=== PATIENT | male | born 1950 | race Two or more races ===

== ENCOUNTER 2016-11-20 09:54 | Emergency (ER) | payer OTHER ==
[~2016-11-20] VITALS: Ht 180.3 cm; Wt 88.5 kg
[~2016-11-20 09:54] MED LIST: ALPR1TAB2 PO; BUPR1TAB11 PO; DIVA125T12 PO; METH500T6 PO; OMEP20TA44 PO; SIMV10TA84 PO; TRAZ50TA2 PO
[2016-11-20] MEDS ORDERED: BACITRACIN TOP OINT 1 UD PKG TOP ONE (11:15)
[2016-11-20] MEDS ORDERED: KETOROLAC TROMETH 60MG/2ML VIAL IM ONE (11:15)
[2016-11-20] MEDS ORDERED: LIDOCAINE 1% HCL (LOCAL ANESTH.) INJ 20ML MDV IJ ONE (11:15)
[2016-11-20 11:37] VITALS: BP 112/89
[2016-11-20] MEDS ORDERED: cefTRIAXone SOD 1,000 MG VL IM ONE (12:30)
== END 2016-11-20 12:56 | disposition home or self-care (01) ==
LOC: ER 09:57
DX: S62.607A Fracture of unspecified phalanx of left little finger, initial encounter for closed fracture (principal); S61.217A Laceration without foreign body of left little finger without damage to nail, initial encounter; F17.290 Nicotine dependence, other tobacco product, uncomplicated; Z90.49 Acquired absence of other specified parts of digestive tract; W54.0XXA Bitten by dog, initial encounter; Y93.89 Activity, other specified; Y99.8 Other external cause status; Y92.89 Other specified places as the place of occurrence of the external cause
CPT/HCPCS: 12002; 29130; 73130; 96372; 99285; J0696; J1885; J2001

== ENCOUNTER 2017-12-19 13:40 | Inpatient (IN) | payer MEDICARE, OTHER ==
[~2017-12-19] VITALS: Ht 180.3 cm; Wt 91.1 kg
[2017-12-19] MEDS ORDERED: NITROGLYCERIN 0.4 MG SL TAB SL ONE (14:00)
[2017-12-19] MEDS ORDERED: ASPirin 81 mg TAB PO ONE (14:00)
[2017-12-19 14:41] LABS: Alanine Aminotransferase 20 U/L (16-61); Albumin 3.4 g/dL (3.4-5.0); Alkaline Phosphatase 67 U/L (45-117); Anion Gap 6 (5-15); Aspartate Aminotransferase 14 U/L (15-37); BUN/Creatinine Ratio 14.5; Bilirubin, Total 0.9 mg/dL (0.2-1.0); Blood Urea Nitrogen 10 mg/dL (7-18); Carbon Dioxide 25 mmol/L (21-32); Chloride 102 mmol/L (98-107); GFR African American 146 mL/min; GFR Non-African American 121 mL/min; Glucose 102 mg/dL (74-106); Potassium 4.2 mmol/L (3.5-5.1); Sodium 133 mmol/L (136-145); Total Protein 7.8 g/dL (6.4-8.2)
[2017-12-19 14:55] LABS: Basophils # (auto) 0 uL; Basophils % (auto) 0.2 % (0.0-2.0); Eosinophils # (auto) 0 uL; Eosinophils % (auto) 0.2 % (0.0-7.0); Hematocrit 42.6 % (41.0-53.0); Hemoglobin 14.5 g/dL (13.5-17.5); Lymphocytes # (auto) 0.6 uL; Lymphocytes % (auto) 5.1 % (10.0-50.0); Mean Corpuscular Hemoglobin 31.5 pg (28.0-32.0); Mean Corpuscular Volume 92.6 fL (80.0-100.0); Monocytes # (auto) 1.3 uL; Monocytes % (auto) 10.7 % (0.0-12.0); Neutrophils # (auto) 9.9 uL; Neutrophils % (auto) 83.8 % (37.0-80.0); Nucleated Red Blood Cells % 0.1 %; Platelet Count (auto) 192 10^3/uL (140-450); Red Cell Distribution Width 13.1 % (11.8-14.3); White Blood Cell 11.8 10^3/uL (4.4-10.8)
[2017-12-19] MEDS ORDERED: MORPHINE SULFATE 8mg/ml INJ SDV IV PRN ×2 (15:30)
[2017-12-19] MEDS ORDERED: ALPRAZOLAM 1 MG PO SCH (15:30)
[2017-12-19] MEDS ORDERED: ACETAMINOPHEN 500 MG TAB PO PRN (15:30)
[2017-12-19] MEDS ORDERED: NITROGLYCERIN 0.4 MG SL TAB SL PRN (15:30)
[2017-12-19] MEDS ORDERED: PROMETHAZINE HCL 25 MG/ML 1ML IV PRN (15:30)
[2017-12-19] MEDS ORDERED: SODIUM CHLORIDE 0.9% 1,000 ML IV ONE (15:30)
[2017-12-19] MEDS ORDERED: ALPR PO (16:18)
[2017-12-19] MEDS ORDERED: ALPRAZolam 0.25 MG TAB PO PRN (16:30)
[2017-12-19] MEDS: ENOXAPARIN SOD 40 MG/0.4 ML SYRINGE SC SCH (16:33)
[2017-12-19] MEDS ORDERED: ATOR20TA50 PO (17:54)
[2017-12-19] MEDS ORDERED: BUPRTAB PO (17:54)
[2017-12-19] MEDS ORDERED: FLUO20CA19 PO (17:54)
[2017-12-19] MEDS ORDERED: METH500T6 PO (17:54)
[2017-12-19] MEDS ORDERED: TRAZ100T2 PO (17:54)
[2017-12-19] MEDS ORDERED: HYDR-4683 PO (17:55)
[2017-12-19 17:58] VITALS: BP 135/81
[2017-12-19] MEDS: SODIUM CHLORIDE 0.9% 1,000 ML IV SCH ×2 (18:53→23:04)
[2017-12-19] MEDS: ATORVASTATIN 20 MG TAB PO SCH (21:36)
[2017-12-19] MEDS: traZODone HCL 50 MG TAB PO SCH (21:39)
[2017-12-19 22:00] VITALS: BP 121/77
[2017-12-20 05:00] VITALS: BP 146/97
[2017-12-20 05:15] LABS: Urine WBC None Seen /hpf (0 - 3)
[2017-12-20 05:27] LABS: Urine Bacteria NONE SEEN /hpf (None Seen); Urine Blood Negative /uL (Negative); Urine Specific Gravity 1.013 (1.001-1.035)
[2017-12-20 05:41] LABS: Alcohol, Urine < 3.0 mg/dL (0-5); Amphetamine Screen, Urine NEGATIVE (NEGATIVE); Barbiturate Scree,Urine NEGATIVE (NEGATIVE); Benzodiazephine Screen, Urine NEGATIVE (NEGATIVE); Cannabinoid Screen, Urine NEGATIVE (NEGATIVE); Cocaine Screen, Urine NEGATIVE (NEGATIVE); Opiate Scree,Urine POSITIVE (NEGATIVE); Phencyclidine Screen, Urine NEGATIVE (NEGATIVE)
[2017-12-20 06:21] LABS: Basophils # (auto) 0 uL; Basophils % (auto) 0.4 % (0.0-2.0); Eosinophils # (auto) 0 uL; Eosinophils % (auto) 0.3 % (0.0-7.0); Hematocrit 40.3 % (41.0-53.0); Hemoglobin 13.8 g/dL (13.5-17.5); Lymphocytes # (auto) 1.1 uL; Lymphocytes % (auto) 9.4 % (10.0-50.0); Mean Corpuscular Hemoglobin 31.8 pg (28.0-32.0); Mean Corpuscular Hgb Conc. 34.1 g/dL (32.0-36.0); Mean Corpuscular Volume 93.3 fL (80.0-100.0); Monocytes # (auto) 1.9 uL; Neutrophils # (auto) 8.3 uL; Neutrophils % (auto) 72.9 % (37.0-80.0); Nucleated Red Blood Cells % 0.1 %; Platelet Count (auto) 193 10^3/uL (140-450); Red Blood Cells 4.32 10^6/uL (4.5-5.90); Red Cell Distribution Width 13.2 % (11.8-14.3); White Blood Cell 11.3 10^3/uL (4.4-10.8)
[2017-12-20] MEDS: HYDROcodone-ACET 5/325MG TAB PO PRN ×3 (06:37→18:41)
[2017-12-20 06:43] LABS: Albumin 2.9 g/dL (3.4-5.0); BUN/Creatinine Ratio 14.1; Bilirubin, Total 1.1 mg/dL (0.2-1.0); Calcium 8.9 mg/dL (8.5-10.1); Total Protein 7.1 g/dL (6.4-8.2)
[2017-12-20 08:00] VITALS: BP 139/86
[2017-12-20 08:30] VITALS: BP 139/86
[2017-12-20] MEDS: buPROPion HCL 75 MG TAB PO SCH ×2 (08:53→17:56)
[2017-12-20] MEDS ORDERED: DIVALPROEX SODIUM 500 MG PO SCH (10:00)
[2017-12-20] MEDS ORDERED: BUPROPION HCL 150 MG PO SCH (10:00)
[2017-12-20] MEDS: ENOXAPARIN SOD 40 MG/0.4 ML SYRINGE SC SCH (10:47)
[2017-12-20] MEDS: PANTOPRAZOLE 40 MG TAB PO SCH (10:49)
[2017-12-20] MEDS: ASPirin 81 mg TAB PO SCH (10:49)
[2017-12-20] MEDS: METHOCARBAMOL 500 MG TAB PO SCH (10:51)
[2017-12-20] MEDS: traZODone HCL 50 MG TAB PO SCH ×2 (10:51→21:41)
[2017-12-20 12:30] VITALS: BP 158/90
[2017-12-20] MEDS: SODIUM CHLORIDE 0.9% 1,000 ML IV SCH ×2 (12:30→23:17)
[2017-12-20 17:03] VITALS: BP 142/88
[2017-12-20] MEDS: ATORVASTATIN 20 MG TAB PO SCH (21:41)
[2017-12-20] MEDS: TEMAZEPAM 15 MG CAP PO PRN (21:41)
[2017-12-20 22:00] VITALS: BP 136/87
[2017-12-21 05:00] VITALS: BP 159/96
[2017-12-21] MEDS: HYDROcodone-ACET 5/325MG TAB PO PRN ×3 (06:36→13:00)
[2017-12-21] MEDS: buPROPion HCL 75 MG TAB PO SCH ×2 (08:05→17:58)
[2017-12-21 08:15] VITALS: BP 120/94
[2017-12-21] MEDS: ASPirin 81 mg TAB PO SCH (10:09)
[2017-12-21] MEDS: traZODone HCL 50 MG TAB PO SCH ×2 (10:09→21:29)
[2017-12-21] MEDS: PANTOPRAZOLE 40 MG TAB PO SCH (10:10)
[2017-12-21] MEDS: METHOCARBAMOL 500 MG TAB PO SCH (10:10)
[2017-12-21] MEDS: ENOXAPARIN SOD 40 MG/0.4 ML SYRINGE SC SCH (10:10)
[2017-12-21 13:00] VITALS: BP 149/89
[2017-12-21 17:12] VITALS: BP 123/83
[2017-12-21] MEDS: KETOROLAC TROMETH 30 MG/ML 1ML VIAL IV SCH (17:58)
[2017-12-21] MEDS: SODIUM CHLORIDE 0.9% 1,000 ML IV SCH (18:54)
[2017-12-21] MEDS: TEMAZEPAM 15 MG CAP PO PRN (21:29)
[2017-12-21] MEDS: ATORVASTATIN 20 MG TAB PO SCH (21:29)
[2017-12-21 22:00] VITALS: BP 117/70
[2017-12-22] MEDS: KETOROLAC TROMETH 30 MG/ML 1ML VIAL IV SCH ×5 (00:07→23:54)
[2017-12-22] MEDS: SODIUM CHLORIDE 0.9% 1,000 ML IV SCH (04:16)
[2017-12-22 05:00] VITALS: BP 116/75
[2017-12-22] MEDS: buPROPion HCL 75 MG TAB PO SCH ×2 (08:28→17:53)
[2017-12-22 09:22] VITALS: BP 114/77
[2017-12-22] MEDS: HYDROcodone-ACET 5/325MG TAB PO PRN ×2 (10:30→20:25)
[2017-12-22] MEDS: ASPirin 81 mg TAB PO SCH (10:58)
[2017-12-22] MEDS: PANTOPRAZOLE 40 MG TAB PO SCH (11:07)
[2017-12-22] MEDS: traZODone HCL 50 MG TAB PO SCH ×2 (11:07→21:29)
[2017-12-22] MEDS: METHOCARBAMOL 500 MG TAB PO SCH (11:08)
[2017-12-22] MEDS: ENOXAPARIN SOD 40 MG/0.4 ML SYRINGE SC SCH (11:08)
[2017-12-22 13:00] VITALS: BP 115/74
[2017-12-22 16:30] VITALS: BP 114/80
[2017-12-22 20:00] VITALS: BP 133/89
[2017-12-22] MEDS: ATORVASTATIN 20 MG TAB PO SCH (21:29)
[2017-12-23] VITALS (8 sets, daily range): BP systolic 119–149; BP diastolic 87–102
[2017-12-23] MEDS: SODIUM CHLORIDE 0.9% 1,000 ML IV SCH ×2 (01:32→20:30)
[2017-12-23] MEDS: KETOROLAC TROMETH 30 MG/ML 1ML VIAL IV SCH ×3 (06:20→18:00)
[2017-12-23] MEDS: buPROPion HCL 75 MG TAB PO SCH ×2 (07:45→18:00)
[2017-12-23] MEDS: HYDROcodone-ACET 5/325MG TAB PO PRN ×2 (07:50→20:12)
[2017-12-23] MEDS: ASPirin 81 mg TAB PO SCH (09:19)
[2017-12-23] MEDS: traZODone HCL 50 MG TAB PO SCH ×2 (09:19→21:32)
[2017-12-23] MEDS: ENOXAPARIN SOD 40 MG/0.4 ML SYRINGE SC SCH (09:19)
[2017-12-23] MEDS: PANTOPRAZOLE 40 MG TAB PO SCH (09:19)
[2017-12-23] MEDS: METHOCARBAMOL 500 MG TAB PO SCH (09:19)
[2017-12-23] MEDS ORDERED: ADENOSINE 77 MG in GIVE UN-DILUTED 0 ML IV ONE (13:15)
[2017-12-23] MEDS: ATORVASTATIN 20 MG TAB PO SCH (21:32)
[2017-12-24] MEDS: KETOROLAC TROMETH 30 MG/ML 1ML VIAL IV SCH ×3 (00:32→11:32)
[2017-12-24 04:42] VITALS: BP 125/80
[2017-12-24] MEDS: SODIUM CHLORIDE 0.9% 1,000 ML IV SCH (05:53)
[2017-12-24] MEDS: buPROPion HCL 75 MG TAB PO SCH (08:24)
[2017-12-24 09:00] VITALS: BP 148/92
[2017-12-24] MEDS: ENOXAPARIN SOD 40 MG/0.4 ML SYRINGE SC SCH (10:00)
[2017-12-24] MEDS: METHOCARBAMOL 500 MG TAB PO SCH (10:03)
[2017-12-24] MEDS: ASPirin 81 mg TAB PO SCH (10:03)
[2017-12-24] MEDS: PANTOPRAZOLE 40 MG TAB PO SCH (10:03)
[2017-12-24] MEDS: traZODone HCL 50 MG TAB PO SCH (10:04)
[2017-12-24 12:18] VITALS: BP 106/71
[2017-12-24 13:00] VITALS: BP 135/77
== END 2017-12-24 13:05 | disposition home or self-care (01) | DRG 552 ==
LOC: EDBD 13:40 → ER 13:42 → TELE 13:43 → TELE-EAST 17:30
PROVIDERS: ADMIT Internal Medicine; ATTEND Internal Medicine
DX: M47.816 Spondylosis without myelopathy or radiculopathy, lumbar region (principal); E87.1 Hypo-osmolality and hyponatremia; R07.89 Other chest pain; F43.10 Post-traumatic stress disorder, unspecified; E78.5 Hyperlipidemia, unspecified; F41.9 Anxiety disorder, unspecified; G89.4 Chronic pain syndrome; I10 Essential (primary) hypertension; K21.9 Gastro-esophageal reflux disease without esophagitis; M06.9 Rheumatoid arthritis, unspecified; Z80.1 Family history of malignant neoplasm of trachea, bronchus and lung; Z82.49 Family history of ischemic heart disease and other diseases of the circulatory system; Z83.3 Family history of diabetes mellitus; Z86.010 Personal history of colon polyps; Z90.49 Acquired absence of other specified parts of digestive tract; Z79.899 Other long term (current) drug therapy
CPT/HCPCS: 36415; 71045; 72131; 72146; 72148; 78452; 80053; 80061; 80307; 81001; 82550; 84443; 84484; 85025; 85379; 85652; 86141; 93005; 93017; 93306; 96361; 96374; 96375; 97116; 97163; 97530; J0153; J1885; J2270

== ENCOUNTER 2017-12-27 07:07 | Inpatient (IN) | payer MEDICARE, OTHER ==
[~2017-12-27] VITALS: Ht 180.3 cm; Wt 86.3 kg
[~2017-12-27 07:07] MED LIST changes: +ALPR PO; -ALPR1TAB2 PO; +ATOR20TA50 PO; -BUPR1TAB11 PO; +BUPRTAB PO; +FLUO20CA19 PO; +HYDR-4683 PO; -SIMV10TA84 PO; +TRAZ100T2 PO; -TRAZ50TA2 PO
[2017-12-27] MEDS ORDERED: SODIUM CHLORIDE 0.9% 1,000 ML IV ONE (08:18)
[2017-12-27 08:29] LABS: Eosinophils # (auto) 0 uL; Eosinophils % (auto) 0.1 % (0.0-7.0)
[2017-12-27] MEDS ORDERED: PROMETHAZINE HCL 25 MG/ML 1ML IV PRN (08:30)
[2017-12-27] MEDS ORDERED: MORPHINE SULFATE 8mg/ml INJ SDV IV ONE (08:30)
[2017-12-27 08:33] LABS: Basophils # (auto) 0.1 uL; Basophils % (auto) 0.6 % (0.0-2.0); Hemoglobin 20.5 g/dL (13.5-17.5); Lymphocytes # (auto) 0.9 uL; Lymphocytes % (auto) 4.2 % (10.0-50.0); Mean Corpuscular Hemoglobin 31.3 pg (28.0-32.0); Mean Corpuscular Hgb Conc. 33.7 g/dL (32.0-36.0); Mean Corpuscular Volume 92.9 fL (80.0-100.0); Monocytes # (auto) 1.2 uL; Monocytes % (auto) 5.7 % (0.0-12.0); Neutrophils # (auto) 19.1 uL; Neutrophils % (auto) 89.4 % (37.0-80.0); Nucleated Red Blood Cells % 0.7 %; Platelet Count (auto) 515 10^3/uL (140-450); Red Blood Cells 6.56 10^6/uL (4.5-5.90); Red Cell Distribution Width 13.9 % (11.8-14.3); White Blood Cell 21.4 10^3/uL (4.4-10.8)
[2017-12-27] MEDS ORDERED: MORPHINE SULFATE 4 MG/ML SYR/VIAL ONE (08:36)
[2017-12-27 08:49] LABS: Hematocrit 60.9 % (41.0-53.0)
[2017-12-27] MEDS ORDERED: IOHEXOL 300 MG/ML 100ML BOTTLE IJ ONE (08:51)
[2017-12-27 08:53] LABS: INR 1.16 (0.9-1.15); Partial Thromboplastin Time 25.1 sec (23.78-33.04); Prothrombin Time 12.3 sec (9.27-12.13)
[2017-12-27 09:07] LABS: Albumin 3.2 g/dL (3.4-5.0); BUN/Creatinine Ratio 12.2; Bilirubin, Total 1.2 mg/dL (0.2-1.0); Magnesium 2.4 mg/dL (1.6-2.6); Potassium 4.4 mmol/L (3.5-5.1)
[2017-12-27 12:11] LABS: Urine Bacteria FEW /hpf (None Seen); Urine Blood Negative /uL (Negative); Urine WBC 57 /hpf (0 - 3)
[2017-12-27 12:21] LABS: Urine Specific Gravity > 1.050 (1.001-1.035)
[2017-12-27] MEDS ORDERED: TEMAZEPAM 15 MG CAP PO PRN (13:45)
[2017-12-27] MEDS ORDERED: NITROGLYCERIN 0.4 MG SL TAB SL PRN (13:45)
[2017-12-27] MEDS ORDERED: MORPHINE SULFATE 8mg/ml INJ SDV IV PRN ×2 (13:45)
[2017-12-27] MEDS ORDERED: cefTRIAXone 1GM/10ml IVPUSH 10 ML IV ONE (13:45)
[2017-12-27] MEDS ORDERED: ONDANSETRON HCL 4 MG/2 ML VIAL IV PRN (13:45)
[2017-12-27] MEDS ORDERED: DOCUSATE SOD 100 MG CAP PO PRN (13:45)
[2017-12-27] MEDS ORDERED: ACETAMINOPHEN 325 MG TAB PO PRN (13:45)
[2017-12-27] MEDS ORDERED: ALPRAZolam 0.25 MG TAB PO PRN (13:45)
[2017-12-27] MEDS ORDERED: DEXTROSE (50%) 50ML SYRG IV PRN (13:45)
[2017-12-27] MEDS: SODIUM CHLOR 0.9% PF (SALINE LOCK) 10ML VIAL/SYR IV SCH ×2 (14:11→22:48)
[2017-12-27] MEDS: HYDROcodone-ACET 5/325MG TAB PO PRN (16:26)
[2017-12-27 17:51] VITALS: BP 125/81
[2017-12-27] MEDS: Boost Glucose Control 8 Ounces PO SCH (18:00)
[2017-12-27] MEDS: ACCU-CHEK COMFORT CURVE STRIP VI SCH ×2 (19:35→22:00)
[2017-12-27] MEDS: InsuLIN REG 1unit/0.01ml Soln (100units/ml) SC SCH ×2 (19:35→22:00)
[2017-12-27] MEDS: METHOCARBAMOL 500 MG TAB PO SCH (19:38)
[2017-12-27] MEDS: buPROPion HCL 75 MG TAB PO SCH (19:38)
[2017-12-27 20:00] VITALS: BP 95/66
[2017-12-27 20:47] VITALS: BP 95/66
[2017-12-27 22:00] VITALS: BP 95/66
[2017-12-27] MEDS: FAMOTIDINE 20 MG TAB PO SCH (22:46)
[2017-12-27] MEDS: traZODone HCL 50 MG TAB PO SCH (22:46)
[2017-12-27] MEDS: ATORVASTATIN 20 MG TAB PO SCH (22:46)
[2017-12-28] MEDS: HYDROcodone-ACET 5/325MG TAB PO PRN ×2 (04:07→10:55)
[2017-12-28 04:56] VITALS: BP 90/64
[2017-12-28 05:53] LABS: Basophils # (auto) 0.1 uL; Basophils % (auto) 0.4 % (0.0-2.0); Eosinophils # (auto) 0.1 uL; Eosinophils % (auto) 0.5 % (0.0-7.0); Hematocrit 45.6 % (41.0-53.0); Hemoglobin 15.7 g/dL (13.5-17.5); Lymphocytes # (auto) 1.9 uL; Lymphocytes % (auto) 10.3 % (10.0-50.0); Mean Corpuscular Hemoglobin 31.8 pg (28.0-32.0); Mean Corpuscular Hgb Conc. 34.5 g/dL (32.0-36.0); Mean Corpuscular Volume 92.2 fL (80.0-100.0); Monocytes # (auto) 1.9 uL; Monocytes % (auto) 10.2 % (0.0-12.0); Neutrophils # (auto) 14.3 uL; Neutrophils % (auto) 78.6 % (37.0-80.0); Nucleated Red Blood Cells % 0.1 %; Platelet Count (auto) 421 10^3/uL (140-450); Red Blood Cells 4.95 10^6/uL (4.5-5.90); Red Cell Distribution Width 13.5 % (11.8-14.3); White Blood Cell 18.2 10^3/uL (4.4-10.8)
[2017-12-28 06:00] LABS: Albumin 2.5 g/dL (3.4-5.0); BUN/Creatinine Ratio 21.9; Bilirubin, Total 0.5 mg/dL (0.2-1.0); Calcium 8.6 mg/dL (8.5-10.1); Potassium 3.7 mmol/L (3.5-5.1); Total Protein 6.8 g/dL (6.4-8.2)
[2017-12-28] MEDS: SODIUM CHLOR 0.9% PF (SALINE LOCK) 10ML VIAL/SYR IV SCH ×3 (06:52→22:17)
[2017-12-28] MEDS: buPROPion HCL 75 MG TAB PO SCH ×2 (06:52→19:19)
[2017-12-28] MEDS: InsuLIN REG 1unit/0.01ml Soln (100units/ml) SC SCH ×4 (06:53→22:00)
[2017-12-28] MEDS: ACCU-CHEK COMFORT CURVE STRIP VI SCH ×4 (06:53→22:00)
[2017-12-28 09:00] VITALS: BP 110/77
[2017-12-28] MEDS: cefTRIAXone 1GM/10ml IVPUSH 10 ML IV SCH (09:14)
[2017-12-28] MEDS: METHOCARBAMOL 500 MG TAB PO SCH ×3 (09:14→19:19)
[2017-12-28] MEDS: Boost Glucose Control 8 Ounces PO SCH ×3 (09:14→18:00)
[2017-12-28] MEDS: MULTIPLE VITAMIN TAB PO SCH (10:53)
[2017-12-28] MEDS: FAMOTIDINE 20 MG TAB PO SCH (10:53)
[2017-12-28] MEDS: PANTOPRAZOLE 40 MG TAB PO SCH (10:53)
[2017-12-28] MEDS: FLUoxetine HCL 20 MG CAP PO SCH (10:53)
[2017-12-28] MEDS ORDERED: GOLYTELY 4L KIT PO ONE (11:45)
[2017-12-28 13:00] VITALS: BP 115/81
[2017-12-28] MEDS: SODIUM CHLORIDE 0.9% 1,000 ML IV SCH ×2 (16:19→23:12)
[2017-12-28] MEDS: metroNIDAZOLE 500MG/100ML 100 ML IV SCH ×3 (16:19→22:17)
[2017-12-28 17:47] VITALS: BP 96/69
[2017-12-28 22:00] VITALS: BP 109/70
[2017-12-28] MEDS: traZODone HCL 50 MG TAB PO SCH (22:18)
[2017-12-28] MEDS: ATORVASTATIN 20 MG TAB PO SCH (22:18)
[2017-12-29 05:00] VITALS: BP 93/66
[2017-12-29] MEDS ORDERED: GOLYTELY 4L KIT PO ONE (06:00)
[2017-12-29] MEDS: metroNIDAZOLE 500MG/100ML 100 ML IV SCH ×2 (06:33→14:00)
[2017-12-29] MEDS: SODIUM CHLOR 0.9% PF (SALINE LOCK) 10ML VIAL/SYR IV SCH ×2 (06:34→14:00)
[2017-12-29] MEDS: ACCU-CHEK COMFORT CURVE STRIP VI SCH ×2 (06:35→11:56)
[2017-12-29] MEDS: buPROPion HCL 75 MG TAB PO SCH (06:35)
[2017-12-29] MEDS: InsuLIN REG 1unit/0.01ml Soln (100units/ml) SC SCH ×2 (06:35→11:30)
[2017-12-29 07:20] LABS: Basophils # (auto) 0.1 uL; Basophils % (auto) 0.5 % (0.0-2.0); Eosinophils # (auto) 0.1 uL; Eosinophils % (auto) 1.2 % (0.0-7.0); Hematocrit 41.1 % (41.0-53.0); Hemoglobin 13.6 g/dL (13.5-17.5); Lymphocytes # (auto) 1.4 uL; Lymphocytes % (auto) 12.6 % (10.0-50.0); Mean Corpuscular Hemoglobin 30.7 pg (28.0-32.0); Mean Corpuscular Hgb Conc. 33.1 g/dL (32.0-36.0); Mean Corpuscular Volume 92.9 fL (80.0-100.0); Monocytes % (auto) 8.6 % (0.0-12.0); Neutrophils # (auto) 8.6 uL; Neutrophils % (auto) 77.1 % (37.0-80.0); Platelet Count (auto) 361 10^3/uL (140-450); Red Blood Cells 4.42 10^6/uL (4.5-5.90); Red Cell Distribution Width 13.5 % (11.8-14.3); White Blood Cell 11.2 10^3/uL (4.4-10.8)
[2017-12-29] MEDS: HYDROcodone-ACET 5/325MG TAB PO PRN (07:57)
[2017-12-29 08:00] VITALS: BP 105/69
[2017-12-29] MEDS: Boost Glucose Control 8 Ounces PO SCH ×2 (08:00→12:00)
[2017-12-29] MEDS ORDERED: FLUMAZENIL 0.1 MG/ML INJ 10ML MDV IV ONE (08:01)
[2017-12-29] MEDS ORDERED: NALOXONE HCL 0.4 MG/ML VIAL ONE (08:01)
[2017-12-29] MEDS ORDERED: SODIUM CHLORIDE LOCK 10 ML ONE (08:02)
[2017-12-29] MEDS ORDERED: LIDOCAINE VISCOUS 2% 15ML UD ONE (08:02)
[2017-12-29] MEDS ORDERED: diphenhdrAMINE HCL 50 MG/1 ML VL ONE (08:03)
[2017-12-29 08:04] LABS: Albumin 2.8 g/dL (3.4-5.0); BUN/Creatinine Ratio 28.4; Bilirubin, Total 0.4 mg/dL (0.2-1.0); Calcium 8.8 mg/dL (8.5-10.1); Potassium 3.8 mmol/L (3.5-5.1); Total Protein 6.9 g/dL (6.4-8.2)
[2017-12-29] MEDS: SODIUM CHLORIDE 0.9% 1,000 ML IV SCH (08:30)
[2017-12-29] MEDS: MIDAZOLAM HCL 5 MG/ML-1ML VIAL ONE ×2 (09:23→09:28)
[2017-12-29] MEDS: fentaNYL CITRATE 100 MCG/2 ML VL ONE ×2 (09:23→09:25)
[2017-12-29] MEDS: PANTOPRAZOLE 40 MG TAB PO SCH (10:46)
[2017-12-29] MEDS: MULTIPLE VITAMIN TAB PO SCH (10:46)
[2017-12-29] MEDS: FLUoxetine HCL 20 MG CAP PO SCH (10:46)
[2017-12-29] MEDS: METHOCARBAMOL 500 MG TAB PO SCH ×2 (10:47→11:57)
[2017-12-29] MEDS: cefTRIAXone 1GM/10ml IVPUSH 10 ML IV SCH (10:47)
[2017-12-29 12:49] VITALS: BP 108/74
[2017-12-29 13:55] VITALS: BP 108/74
[2017-12-29 14:30] VITALS: BP 108/74
== END 2017-12-29 14:30 | disposition home or self-care (01) | DRG 871 ==
LOC: ER 07:07 → TELE 07:08 → TELE-CENTR 15:50
PROVIDERS: ADMIT Internal Medicine; ATTEND Family Medicine
PROC: 0DBL8ZX Excision of Transverse Colon, Via Natural or Artificial Opening Endoscopic, Diagnostic (ICD-10-PCS; principal; 2017-12-29 08:45)
DX: A41.9 Sepsis, unspecified organism (principal); K55.039 Acute (reversible) ischemia of large intestine, extent unspecified; D68.9 Coagulation defect, unspecified; E44.1 Mild protein-calorie malnutrition; E87.1 Hypo-osmolality and hyponatremia; N39.0 Urinary tract infection, site not specified; E11.21 Type 2 diabetes mellitus with diabetic nephropathy; D75.1 Secondary polycythemia; E11.22 Type 2 diabetes mellitus with diabetic chronic kidney disease; K76.0 Fatty (change of) liver, not elsewhere classified; E78.5 Hyperlipidemia, unspecified; F31.9 Bipolar disorder, unspecified; F41.9 Anxiety disorder, unspecified; K21.9 Gastro-esophageal reflux disease without esophagitis; E11.65 Type 2 diabetes mellitus with hyperglycemia; E78.00 Pure hypercholesterolemia, unspecified; N18.2 Chronic kidney disease, stage 2 (mild); G89.29 Other chronic pain; M54.9 Dorsalgia, unspecified; E86.0 Dehydration; N28.1 Cyst of kidney, acquired; Z82.49 Family history of ischemic heart disease and other diseases of the circulatory system; Z72.0 Tobacco use; Z86.010 Personal history of colon polyps; Z68.26 Body mass index [BMI] 26.0-26.9, adult
CPT/HCPCS: 36415; 71046; 74177; 80053; 81001; 82962; 83036; 83605; 83690; 83735; 84484; 85025; 85610; 85730; 87040; 87045; 87081; 87086; 87493; 87899; 93005; 94761; 96361; 96374; 96375; J1815; J2250; J3490

== ENCOUNTER 2018-03-09 09:30 | Emergency (ER) | payer MEDICARE, OTHER ==
[~2018-03-09] VITALS: Ht 180.3 cm; Wt 83.5 kg
[~2018-03-09 09:30] MED LIST changes: -ALPR PO; +ALPR0.255 PO
[2018-03-09] MEDS ORDERED: LIDOCAINE 1% HCL (LOCAL ANESTH.) INJ 20ML MDV IJ ONE (10:15)
[2018-03-09] MEDS ORDERED: KETOROLAC TROMETH 60MG/2ML VIAL IM ONE (10:15)
[2018-03-09 12:00] VITALS: BP 133/92
== END 2018-03-09 12:01 | disposition home or self-care (01) ==
LOC: ER 09:33
DX: N48.33 Priapism, drug-induced (principal); K21.9 Gastro-esophageal reflux disease without esophagitis; E78.5 Hyperlipidemia, unspecified
CPT/HCPCS: 96372; 99283; J1885; J2001

== ENCOUNTER 2018-03-10 15:07 | Emergency (ER) | payer OTHER ==
[~2018-03-10] VITALS: Ht 180.3 cm; Wt 82.6 kg
[2018-03-10] MEDS ORDERED: MORPHINE SULFATE 4 MG/ML SYR/VIAL IM ONE (16:15)
[2018-03-10] MEDS ORDERED: ONDANSETRON ODT 4 MG TAB PO ONE (16:15)
[2018-03-10] MEDS ORDERED: PHENYLEPHRINE INJ 10 MG in SODIUM CHL 0.9% 19 ML IR ONE (17:30)
[2018-03-10] MEDS ORDERED: MORPHINE SULF INJ 2 MG/ML SYRINGE 1ML IM ONE (18:15)
[2018-03-10 18:33] VITALS: BP 113/79
== END 2018-03-10 19:01 | disposition home or self-care (01) ==
LOC: ER 15:10
DX: N48.33 Priapism, drug-induced (principal); E78.5 Hyperlipidemia, unspecified; K21.9 Gastro-esophageal reflux disease without esophagitis; Z90.49 Acquired absence of other specified parts of digestive tract; Z79.899 Other long term (current) drug therapy
CPT/HCPCS: 54220; 96372; 99284; J2270; J2370; Q0162